=== PATIENT | male | born 1975 | race Caucasian/White ===

== ENCOUNTER 2017-04-18 12:40 | Emergency (ER) | payer OTHER ==
[~2017-04-18] VITALS: Ht 175.3 cm; Wt 79.4 kg
--- NOTE | 2017-04-18 13:10 | Emergency Room Report ---
History of Present Illness General Chief Complaint: Abdominal Pain Source: Patient (CHANDA CARR M.D.) Present Illness HPI 41YOM BIBEMS for ?seizure activity Patient notes history of seizure, takes klonopin daily Atraumatic EMS stated not postictal, no sign of seizure activity recently Patient denotes argument with landlord that precipitated seizure, stress States he is "autonomic instability" with BP, but also takes fentanyl patch for chronic pain in abdomen, lower extremities Denies chest pain, SOB, abd apin, fever/chills Denies ETOH, other drug use (CHANDA CARR M.D.) Patient History Past Medical History: seizures Past Surgical History: none Pertinent Family History: none Social History: Denies: smoking, alcohol use, drug use Immunizations: UTD Reviewed Nursing Documentation: PMH: Agreed, PSxH: Agreed (CHANDA CARR M.D.) Physical Exam Vital Signs Date Time Temp Pulse Resp B/P (MAP) Pulse Ox O2 Delivery O2 Flow Rate FiO2 04/18/18 12:44 Room Air Sp02 EP Interpretation: reviewed, normal General Appearance: normal inspection, well appearing, no apparent distress, alert, GCS 15, non-toxic Head: normocephalic, atraumatic Eyes: bilateral eye PERRL, bilateral eye EOMI ENT: normal ENT inspection, hearing grossly normal, normal pharynx, no angioedema, normal voice, TMs + canals normal, uvula midline, moist mucus membranes Neck: normal inspection, full range of motion, supple, thyroid normal, no meningismus, no bony tend Respiratory: normal inspection, lungs clear, normal breath sounds, no rhonchi, no respiratory distress, no retraction, no accessory muscle use, no wheezing, speaking full sentences Cardiovascular #1: regular rate, rhythm, no edema, no JVD, normal capillary refill Gastrointestinal: normal inspection, normal bowel sounds, non tender, soft, no mass, no peritonitis, non-distended, no guarding, no hernia, no pulsatile mass Genitourinary: no CVA tenderness Musculoskeletal: normal inspection, back normal, normal range of motion, no calf tenderness, pelvis stable, Ghazala's Sign negative Neurologic: normal inspection, alert, oriented x3, responsive, protector plate attacher III-XII nml as tested, motor strength/tone normal, cerebellar normal, normal gait, speech normal Psychiatric: normal inspection, judgement/insight normal, mood/affect normal, no suicidal/homicidal ideation, no delusions Skin: normal inspection, normal color, no rash Lymphatic: normal inspection, no adenopathy (CHANDA CARR M.D.) Last 24 Hour Vital Signs Date Time Temp Pulse Resp B/P (MAP) Pulse Ox O2 Delivery O2 Flow Rate FiO2 04/18/17 14:55 98.0 66 18 128/82 97 Room Air 04/18/17 14:52 98.0 66 18 128/82 97 Room Air 98.0 04/18/17 12:44 Room Air Sp02 EP Interpretation: reviewed, normal General Appearance: well appearing, no apparent distress, GCS 15 Head: normocephalic Eyes: bilateral eye normal inspection, bilateral eye PERRL, bilateral eye EOMI ENT: moist mucus membranes - no lingual macerations Neck: supple Respiratory: lungs clear, normal breath sounds Cardiovascular #1: regular rate, rhythm Cardiovascular #2: 2+ radial (R) Gastrointestinal: normal inspection, non-distended, scaphoid Musculoskeletal: back normal, gait/station normal, normal range of motion Neurologic: alert, oriented x3, grossly normal Psychiatric: mood/affect normal Skin: warm/dry, other - tinea versicolor, hyperpigmmented plaques L forearm and R dorsum of foot (Bernabe Lo M.D.) Medical Decision Making Diagnostic Impression: Primary Impression: Altered awareness, transient Additional Impressions: Syncopal seizure Familial Mediterranean fever ER Course 41YOM with ?seizure activity, syncope Not post-ictal Atraumatic Urine drug screen + for multiple substances patient alert and oriented in ED Endorsed to Dr Lo at 230pm to followup reassessment of patient (CHANDA CARR M.D.) ER Course Please see above note. Patient evaluated in full by me. Patient with insomnia for several days and not ambulating. Argument with landlord because alarm clock was going off all night. He just walked up stairs and felt dizzy. Also he was upset with the argument. He then was found by after 2 seizures lasting less than 2 minutes. Apparently there was no post ictal state with EMS. His last seizure was 3 months ago. His PMD knows about his seizures and he is on Klonopin. He might have missed his dose earlier today. Many years ago, he was on Dilantin. He has autonomic instability. His blood pressure was low earlier today. He felt dizzy when walking up stairs after the argument. He felt strong when he stood to give urine here. 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 4 days ago, it was 104. He takes tylenol for this and it has been going on for 3 years. He completed a course of azithromycin 2 weeks ago. It might have been for URI symptoms (his MD was not clear). He has had sepsis from C dificile in the past, but recently has had constipation rather than diarrhea. The abdominal pain is constant and unchanged. He is on a Fentanyl patch for this. He does have nausea but does not like Zofran because of the minty flavor. He does not feel dehydrated at this time. He is on Adderall. He had blood work done 2 weeks ago and states things were normal except for elevated ESR. He also has IgA deficiency. (Another immunologic deficiency was named I am not familiar with.) Currently, he feels better, through tired (not unusual for him after passing out and possible seizure). He wants to go home. We discussed possibly adding an anticonvulsant, however, the event sounds more post syncopal rather than epileptic. He is planning on going to [facility] Wednesday. I believe he is stable to make this trip. Patient stable for outpatient observation and treatment. Laboratory Tests Test 04/18/17 13:40 Urine Opiates Screen Positive (NEGATIVE) H Urine Barbiturates Screen Positive (NEGATIVE) H Phencyclidine (PCP) Screen Negative (NEGATIVE) Urine Amphetamines Screen Positive (NEGATIVE) H Urine Benzodiazepines Screen Negative (NEGATIVE) Urine Cocaine Screen Negative (NEGATIVE) Urine Marijuana (THC) Screen Positive (NEGATIVE) H (Bernabe Lo M.D.) EKG Diagnostic Results Rate: normal Rhythm: NSR ST Segments: no acute changes ASA given to the pt in ED: No (CHANDA CARR M.D.) Rhythm Strip Diag. Results EP Interpretation: yes Rate: 78 Rhythm: NSR, no PVC's, no ectopy (CHANDA CARR M.D.) EP Interpretation: yes Rhythm: NSR, no PVC's, no ectopy (Bernabe Lo M.D.) Last Vital Signs Date Time Temp Pulse Resp B/P (MAP) Pulse Ox O2 Delivery O2 Flow Rate FiO2 04/18/17 12:44 Room Air Status: improved (CHANDA CARR M.D.) Last Vital Signs Date Time Temp Pulse Resp B/P (MAP) Pulse Ox O2 Delivery O2 Flow Rate FiO2 04/18/17 14:55 98.0 66 18 128/82 97 Room Air Status: improved (Bernabe Lo M.D.) Disposition: HOME, SELF-CARE Condition: Improved Referrals: NOT CHOSEN IPA/,REFERRING (PCP) CHANDA CARR M.D. Apr 18, 2017 13:10 Bernabe Lo M.D. Apr 18, 2017 14:50
[2017-04-18 14:52] VITALS: BP 128/82
[2017-04-18 14:55] VITALS: BP 128/82
--- NOTE | 2017-04-21 20:19 | Cardiology Report ---
APPROVED REPORT EKG Measurement Heart [id number] Normal sinus rhythm Minimal voltage criteria for LVH, may be normal variant Borderline ECG
== END 2017-04-18 15:01 | disposition home or self-care (01) ==
LOC: EDBD 12:40 → EMR 13:02
DX: G40.909 Epilepsy, unspecified, not intractable, without status epilepticus (principal); Z79.899 Other long term (current) drug therapy; B36.0 Pityriasis versicolor
CPT/HCPCS: 80307; 82962; 93005; 99284